=== PATIENT | male | born 1960 | race Hispanic/Latino ===

== ENCOUNTER 2020-08-14 13:47 | Emergency (ER) | payer OTHER, SELFPAY ==
[2020-08-14] VITALS (12 sets, daily range): BP systolic 129–170; BP diastolic 72–83; PULSE 77–89; RESP 16–21; TEMP 36.6; O2SAT 95–100
--- NOTE | 2020-08-14 13:59 | ECG_ITS ---
Measurements Intervals [place] Rate: 85 P: 46 [place]: 157 QRS: 48 QRSD: 86 T: 32 QT: 333 QTc: 398 Interpretive Statements SINUS RHYTHM NORMAL ECG Electronically Signed On 08-14-2020 14:06:23 CDT by Peter Luciano D.O.
--- NOTE | 2020-08-14 14:05 | ED.GENADULT ---
HPI - General Adult General Chief complaint: Recheck/Abnormal Lab/Rx Stated complaint: high blood pressure Time Seen by Provider: 08/14/20 13:51 Related Data Home Medications Medication Instructions Recorded Confirmed glipizide 10 mg PO DAILY 08/14/20 metformin 1,000 mg PO DAILY 08/14/20 pravastatin 40 mg PO DAILY 08/14/20 Allergies Allergy/AdvReac Type Severity Reaction Status Date / Time No Known Allergies Allergy Verified 08/14/20 13:58 Course Vital Signs Vital signs: Vital Signs Temperature 36.6 C 08/14/20 13:54 Pulse Rate 84 08/14/20 13:54 Respiratory Rate 20 08/14/20 13:54 Blood Pressure 170/82 H 08/14/20 13:54 Pulse Oximetry 98 08/14/20 13:54 Temperature 36.6 C 08/14/20 13:54 Pulse Rate 84 08/14/20 13:54 Respiratory Rate 20 08/14/20 13:54 Blood Pressure 170/82 H 08/14/20 13:54 Pulse Oximetry 98 08/14/20 13:54 Medical Decision Making Vital Signs Vital Signs: Vital Signs Temperature 36.6 C 08/14/20 13:54 Pulse Rate 84 08/14/20 13:54 Respiratory Rate 20 08/14/20 13:54 Blood Pressure 170/82 H 08/14/20 13:54 Pulse Oximetry 98 08/14/20 13:54 Temperature 36.6 C 08/14/20 13:54 Pulse Rate 84 08/14/20 13:54 Respiratory Rate 20 08/14/20 13:54 Blood Pressure 170/82 H 08/14/20 13:54 Pulse Oximetry 98 08/14/20 13:54 Discharge Plan Discharge Prescriptions: No Action pravastatin 40 mg Tablet 40 mg PO DAILY RF: 0 glipizide 10 mg Tablet 10 mg PO DAILY RF: 0 metformin 1,000 mg Tablet 1,000 mg PO DAILY RF: 0
[2020-08-14 14:22] LABS: Basophils Percent Auto 0.2 % (0.2-1.2); Eosinophils Percent Auto 0.5 % (0-4.4); Hematocrit 44.7 % (42.0-52.0); Hemoglobin 15.3 g/dL (14.0-18.0); Immature Granulocyte Absolute 0.03 K/mm3 (0.00-0.031); Immature Granulocyte Percent A 0.4 % (0-0.5); Lymphocytes Absolute Auto 2.04 K/mm3 (0.9-3.2); Lymphocytes Percent Auto 24.6 % (18.3-44.2); Mean Corpuscular HGB Conc 34.2 g/dl (32-36); Mean Corpuscular Volume 90.7 fl (80-100); Mean Platelet Volume 9.8 fl (7.4-10.4); Monocytes Absolute Auto 0.7 K/mm3 (0.1-0.6); Monocytes Percent Auto 8.7 % (2.6-8.5); Neutrophils Absolute Auto 5.5 K/mm3 (1.3-6.7); Neutrophils Percent Auto 65.6 % (45.5-73.1); Platelet Count Result 206 k/mm3 (150-375); Red Blood Count 4.93 M/mm3 (4.6-6.20); Red Cell Distribution Width 12.2 % (11.5-14.5); White Blood Count 8.3 K/mm3 (4.5-10.0)
--- NOTE | 2020-08-14 14:24 | ED.GENADULT ---
HPI - General Adult General Chief complaint: Recheck/Abnormal Lab/Rx Stated complaint: high blood pressure Time Seen by Provider: 08/14/20 13:51 Source: patient Mode of arrival: ambulatory History of Present Illness HPI narrative: Patient is a 60 y/o male complaining hypertension. He states that he had his BP checked earlier today and it was 222/88. He feels well other than some mild headache. He denies any chest pain, shortness of breath of leg swelling. He states that he was supposed to be taking Valsartan 40 mg daily, but has not been taking it recently because he felt fine. He states that he still has Valsartan at home. Related Data Home Medications Medication Instructions Recorded Confirmed glipizide 10 mg PO DAILY 08/14/20 metformin 1,000 mg PO DAILY 08/14/20 pravastatin 40 mg PO DAILY 08/14/20 Allergies Allergy/AdvReac Type Severity Reaction Status Date / Time No Known Allergies Allergy Verified 08/14/20 13:58 Review of Systems Constitutional: Constitutional: Denies chills, Denies fever(s), Reports headache(s) and Denies weakness Eyes: Eyes: Denies blurry vision ENT: Reports headache(s) and Denies neck pain Cardiovascular: Cardiovascular: Denies chest pain and Denies dyspnea Respiratory: Respiratory: Denies cough and Denies dyspnea Gastrointestinal: Gastrointestinal: Denies abdominal pain, Denies diarrhea, Denies nausea and Denies vomiting Genitourinary: Genitourinary: Denies hematuria and Denies dysuria Musculoskeletal: Musculoskeletal: Denies back pain and Denies neck pain Neurologic: Reports headache(s) and Denies weakness Exam Const: General: no acute distress and well developed Orientation/consciousness: oriented to person, oriented to place, oriented to time and patient oriented x3 HENMT: Head: normocephalic Ears: external ears normal General nose exam: Normal external nose present Eyes: General: appearance normal, both eyes and all related structures Conjunctivae: conjunctivae normal Neck: Neck: normal visual inspection and full ROM Chest: Chest palpation & inspection: normal inspection of the chest and no tenderness Resp: Effort & Inspection: normal respiratory effort Auscultation: clear to auscultation bilaterally Cardio: Rate: regular rate Rhythm: regular rhythm GI: GI Palp: No abdominal tenderness and Yes Soft to palpation Skin: General skin exam: normal color and turgor normal Neuro: General: oriented to person, oriented to place, oriented to time and patient oriented x3 Cranial nerves: Yes CN's II-XII intact bilaterally Cognition (Neuro): normal cognition Motor exam (neuro): 5/5 motor strength present throughout Sensory Exam: normal sensation Extrem: General: normal to inspection, full ROM and no pedal edema Psych: Appearance: grossly normal Mental Status: mental status grossly normal Affect: normal affect Course Reevaluation(s) Reevaluation #1: Rechecked. Patient feels well. Instructed patient to continue with Valsartan as already prescribed. Date: 08/14/20 Time: 15:05 Vital Signs Vital signs: Vital Signs Blood Pressure 170/82 H 08/14/20 13:53 Pulse Oximetry 100 08/14/20 13:53 Temperature 36.6 C 08/14/20 13:54 Pulse Rate 77 08/14/20 15:19 Respiratory Rate 18 08/14/20 15:19 Blood Pressure 137/83 08/14/20 15:19 Pulse Oximetry 99 08/14/20 15:19 Medical Decision Making Vital Signs Vital Signs: Vital Signs Blood Pressure 170/82 H 08/14/20 13:53 Pulse Oximetry 100 08/14/20 13:53 Temperature 36.6 C 08/14/20 13:54 Pulse Rate 77 08/14/20 15:19 Respiratory Rate 18 08/14/20 15:19 Blood Pressure 137/83 08/14/20 15:19 Pulse Oximetry 99 08/14/20 15:19 Lab Data Result diagrams: 08/14/20 14:11 08/14/20 14:11 Labs: Lab Results 08/14/20 08/14/20 Range/Units 14:11 14:11 WBC 8.3 (4.5-10.0) K/mm3 RBC 4.93 (4.6-6.20) M/mm3 Hgb 15.3 (14.0-18.0) g/dL Hct 44.
[2020-08-14 14:33] LABS: Anion Gap 5 mmol/L (8-16); Blood Urea Nitrogen 21 mg/dL (9-20); Calcium 9.3 mg/dL (8.4-10.2); Carbon Dioxide 26 mmol/L (22-30); Chloride 104 mmol/L (98-107); Estimated CRCL calculation 76 ml/min; Estimated Glomerular Filt Rate > 60; Glucose 153 mg/dL (75-110); Potassium 4.1 mmol/L (3.4-5.0); Sodium 135 mmol/L (137-145)
[2020-08-14] MEDS: VALSARTAN 40 MG TABLET PO (14:48)
== END 2020-08-14 15:16 | disposition home or self-care (01) ==
PROVIDERS: Emergency Provider Emergency Medicine
DX: I10 Essential (primary) hypertension (principal)
CPT/HCPCS: 36415; 80048; 85025; 93005; 99283; A9270

== ENCOUNTER 2023-04-19 17:45 | Emergency (ER) | payer OTHER, SELFPAY ==
--- NOTE | ~2023-04-19 | CT_ITS ---
EXAMINATION: CT brain wo con DATE: 04/19/2023 17:55 INDICATION: CVA. TECHNIQUE: Computed tomography (CT) of the head was performed without intravenous contrast. The dose- length product was 605.33 mGy-cm. Automated exposure control and iterative reconstruction technique w ere employed. COMPARISON: None FINDINGS: No acute intracranial hemorrhage, infarction, mass or mass effect. No ventriculomegaly or m idline shift. Basilar cisterns are patent. Normal boyd-white differentiation. Mild mucosal thickening of the ethmoid air cells. Mastoids are pneumatized. IMPRESSION: 1. No acute intracranial abnormality. As per stroke protocol, I called these results to emergency room, discussed with Dr. Darvin Richards MD at 04/19/2023 18:01 CDT. Reviewed, dictated and finalized at location A. IMPRESSION: 1. No acute intracranial abnormality. As per stroke protocol, I called these results to emergency room, discussed wit h Dr. Darvin Richards MD at 04/19/2023 18:01 CDT.
--- NOTE | ~2023-04-19 | XR_ITS ---
XR chest 1V portable 04/19/2023 18:14 Indication: Left-sided facial pain. Procedure: AP portable chest Comparison: No prior studies for comparison. Findings: Heart size normal. No focal air space disease, pulmonary edema, pleural effusion or suspect ed pneumothorax. Impression: 1: No acute cardiopulmonary disease. Reviewed, dictated and finalized at location A. Impression: 1: No acute cardiopulmonary disease.
--- NOTE | 2023-04-19 17:48 | ECG_ITS ---
Measurements Intervals [place] Rate: 77 P: 45 [place]: 174 QRS: 46 QRSD: 80 T: 24 QT: 349 QTc: 395 Interpretive Statements SINUS RHYTHM NORMAL ECG COMPARED TO ECG 08/14/2020 14:04:42 NO SIGNIFICANT CHANGES Electronically Signed On 04-20-2023 9:11:01 CDT by Florencio Salinas M.D.
[2023-04-19 17:59] VITALS: BP 167/78; PULSE 77; RESP 16; TEMP 36.7; O2SAT 100
--- NOTE | 2023-04-19 18:05 | ED.NEUROSD ---
HPI - Neuro Symptoms/Deficit General Chief Complaint: Suspected CVA Stated Complaint: left side numbness X2 hours Time Seen by Provider: 04/19/23 17:52 Source: patient and RN notes reviewed Mode of arrival: ambulatory Limitations: no limitations History of Present Illness HPI Narrative: THis is a 63 year old male with history of hypertension, DM who presents from home for evaluation of left side numbness. Patient states around 4 pm today, he was sitting on the couch and he felt his left face go numb. He also reports left hand and left leg were numb and tingling. He states he noticed that his left leg felt heavy as well. He denies history of CVA. He denies headache, blurred vision, difficulty speaking, chest pain or shortness of breath. Related Data Home Medications Medication Instructions Recorded Confirmed glipizide 10 mg tablet 10 mg PO DAILY 08/14/20 metformin 1,000 mg tablet 1,000 mg PO DAILY 08/14/20 pravastatin 40 mg tablet 40 mg PO DAILY 08/14/20 Allergies Allergy/AdvReac Type Severity Reaction Status Date / Time No Known Allergies Allergy Verified 04/19/23 17:46 Review of Systems Constitutional: Constitutional: Reports weakness Cardiovascular: Cardiovascular: Denies syncope, Denies rapid heart rate, Denies irregular heart rhythm, Denies leg edema and Denies dyspnea Respiratory: Respiratory: Denies chest congestion, Denies hemoptysis, Denies excessive phlegm production and Denies dyspnea Gastrointestinal: Gastrointestinal: Denies abdominal pain, Denies hematochezia, Denies diarrhea and Denies vomiting Genitourinary: Genitourinary: Denies hematuria, Denies dysuria, Denies penile discharge and Denies testicular pain Musculoskeletal: Musculoskeletal: Denies joint swelling, Denies loss of height and Denies muscle weakness Neurologic: Denies syncope, Reports focal weakness, Reports numbness and Reports weakness PMFSH Past Medical History Medical History (Updated 04/19/23 @ 18:54 by Kta Garcia MD) Diabetes mellitus Hyperlipidemia Hypertension Surgical History Surgical History (Updated 04/19/23 @ 18:54 by Kat Garcia MD) No pertinent past surgical history Social History Social History (Updated 04/19/23 @ 18:55 by Kat Garcia MD) Smoking status: Current every day smoker Exam Narrative: GENERAL: Well-appearing, well-nourished, and in no acute distress. HEAD: Normocephalic, atraumatic EYES: PERRLA and EOMI, conjunctiva clear without discharge THROAT:Mucous membranes moist, Oropharynx normal without erythema, exudate, peritonsillar swelling or fluctuance NECK: Supple, without lymphadenopathy or mass RESPIRATORY: No respiratory distress, Airway patent, Respirations non-labored, Clear to auscultation without rales, rhonchi or wheeze HEART: Regular rate and rhythm. No murmur heard. Normal peripheral pulses. ABDOMEN: Soft, nontender, nondistended, normal active bowel sounds. No masses. No rebound or guarding, No organomegaly. EXTREMITIES: No edema, normal strength with full range of motion. SKIN: Warm, dry, normal color without rash NEURO: Alert and oriented x3. . PSYCH: Normal mood and affect. Neuro: Motor exam (neuro): Other motor observations present (left lower extremity drift) Sensory Exam: Sensory deficit (Neuro) (decreased sensation to left arm, left face, left leg) Coordination: [id number] test normal and other (abnormal finger to nose on left) Extrem: General: normal to inspection Course Reevaluation(s) Reevaluation #1: PAtient and family reports they understand risk and agree to thrombolytics. They were offered to use stratus Date: 04/19/23 Time: 18:58 Consultations Consultation #1: I Spoke with Dr. Myers with [facility] who agrees with thrombolytics. PAtient will need to be transferred to ER after thrombolytics given, emergent transfer Date: 04/19/23 Time: 18:26 Vital Signs Vital signs: Vital Signs Temperature 98.1 F 04/19/23 1
[2023-04-19 18:16] VITALS: BP 144/66; PULSE 77; RESP 22; O2SAT 98
[2023-04-19 18:16] LABS: Basophils Percent Auto 0.4 % (0.2-1.2); Eosinophils Absolute Auto 0.2 K/mm3 (0-0.3); Eosinophils Percent Auto 2.5 % (0-4.4); Hematocrit 43.5 % (42.0-52.0); Hemoglobin 14.6 g/dL (14.0-18.0); Immature Granulocyte Absolute 0.01 K/mm3 (0.00-0.031); Immature Granulocyte Percent A 0.1 % (0-0.5); Lymphocytes Percent Auto 29.3 % (18.3-44.2); Mean Corpuscular HGB Conc 33.6 g/dl (32-36); Mean Corpuscular Volume 92.4 fl (80-100); Mean Platelet Volume 9.1 fl (7.4-10.4); Monocytes Absolute Auto 0.7 K/mm3 (0.1-0.6); Monocytes Percent Auto 9.5 % (2.6-8.5); Neutrophils Percent Auto 58.2 % (45.5-73.1); Platelet Count Result 248 k/mm3 (150-375); Red Blood Count 4.71 M/mm3 (4.6-6.20); Red Cell Distribution Width 12.7 % (11.5-14.5); White Blood Count 6.8 K/mm3 (4.5-10.0)
[2023-04-19 18:21] LABS: Glucose Point of Care 299 mg/dl (65-105)
[2023-04-19 18:28] LABS: INR 0.9; Prothrombin Time 12.5 Seconds (11.1-14.7)
[2023-04-19 18:31] VITALS: BP 154/101; PULSE 82; RESP 20; O2SAT 97
[2023-04-19 18:44] LABS: Troponin I < 0.012 ng/mL (0.000-0.034)
[2023-04-19 18:52] VITALS: BP 159/65; PULSE 78; RESP 22; O2SAT 99
[2023-04-19 19:01] VITALS: BP 159/80; PULSE 74; RESP 20
[2023-04-19 19:03] VITALS: BP 146/74; PULSE 74; RESP 18; O2SAT 97
[2023-04-19 19:37] LABS: Alanine Aminotransferase 20 U/L (6-50); Albumin Level 3.5 g/dL (3.5-5.1); Alkaline Phosphatase 43 U/L (38-126); Anion Gap 4 mmol/L (8-16); Aspartate Amino Transferase 23 U/L (17-59); Bilirubin,Total 0.6 mg/dL (0.2-1.3); Blood Urea Nitrogen 20 mg/dL (9-20); Calcium 8.9 mg/dL (8.4-10.2); Carbon Dioxide 31 mmol/L (22-30); Chloride 102 mmol/L (98-107); Estimated CRCL calculation 78 ml/min; Estimated Glomerular Filt Rate > 60; Glucose 296 mg/dL (65-110); Potassium 4.2 mmol/L (3.4-5.0); Sodium 137 mmol/L (137-145)
== END 2023-04-19 19:32 | disposition short-term general hospital (02) ==
PROVIDERS: Emergency Medicine; Emergency Provider General Practice
DX: I63.9 Cerebral infarction, unspecified (principal); R29.704 NIHSS score 4; I10 Essential (primary) hypertension; E11.9 Type 2 diabetes mellitus without complications; E78.5 Hyperlipidemia, unspecified
CPT/HCPCS: 36415; 37195; 70450; 71045; 80053; 82948; 84484; 85025; 85610; 85730; 93005; 99285; J2997

== ENCOUNTER 2023-05-04 14:44 | Emergency (ER) | payer OTHER, SELFPAY ==
--- NOTE | ~2023-05-04 | XR_ITS ---
EXAMINATION: XR hip LT 2V w AP pelvis DATE: 05/04/2023 16:53 INDICATION: One day of left hip pain TECHNIQUE: Anteroposterior view of the pelvis and anteroposterior and frog leg lateral views of the a ffected hip were obtained. COMPARISON: None. FINDINGS: Alignment is normal. No fracture or suspected osteonecrosis. 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 Bilateral hip joint spaces are relatively preserved. Mild lumbar spondylosis. Soft ti ssues are unremarkable. IMPRESSION: 1. Mild degenerative skeletal changes in the lumbar spine and bilateral sacroiliac joints. Reviewed, dictated and finalized at location A. IMPRESSION: 1. Mild degenerative skeletal changes in the lumbar spine and bilateral sacroil iac joints.
[2023-05-04 14:46] VITALS: BP 129/82; PULSE 100; RESP 18; TEMP 36.5; O2SAT 100
--- NOTE | 2023-05-04 16:42 | ED.EXTPRO ---
HPI - Extremity Problem General Chief complaint: Extremity Problem,Nontraumatic Stated complaint: pain ro right hip, down to knee Time Seen by Provider: 05/04/23 15:47 History of Present Illness HPI Narrative: Patient is a 63-year-old male presenting with left hip and lower back pain. Patient states that he was recently discharged from a rehab facility after having a stroke a couple of months ago. States that for the last day and a half he has had left hip pain that shoots down the back of his leg. States he also has pain in his left buttocks. He denies recent falls or traumas. No numbness or weakness. States that laying on his left side seems to improve the pain. He denies saddle anesthesia, fevers, bladder or bowel incontinence. He denies further complaints. States that he has taken Tylenol with moderate relief. Related Data Home Medications Medication Instructions Recorded Confirmed glipizide 10 mg tablet 10 mg PO DAILY 08/14/20 metformin 1,000 mg tablet 1,000 mg PO DAILY 08/14/20 pravastatin 40 mg tablet 40 mg PO DAILY 08/14/20 Allergies Allergy/AdvReac Type Severity Reaction Status Date / Time No Known Allergies Allergy Verified 05/04/23 15:16 Review of Systems Review of Systems: All systems reviewed & are unremarkable except as noted in HPI and below PMFSH Past Medical History Medical History Diabetes mellitus Hyperlipidemia Hypertension Surgical History Surgical History No pertinent past surgical history Social History Social History Smoking status: Current every day smoker Exam Narrative: GENERAL: Well-appearing, well-nourished, and in no acute distress. HEAD: Normocephalic, atraumatic. EYES: PERRLA and EOMI. ENT: Nares clear, no rhinorrhea or epistaxis. NECK: Supple. CHEST: No respiratory distress. HEART: Regular rate and rhythm. Normal peripheral pulses. ABDOMEN: Soft, nontender, nondistended EXTREMITIES: Normal range of motion. No edema. ROM intact though certain movements of left hip exacerbate the pain; DP/PT pulses 2+ BACK: +paraspinal tenderness bilaterally lumbar spine region with tenderness down left buttock and left hip. No skin changes, no deformities, no midline tenderness SKIN: Warm, dry, no rash. NEURO: No focal deficits. Alert and oriented x3. PSYCH: Normal mood and affect. Course Vital Signs Vital signs: Vital Signs Temperature 97.7 F 05/04/23 14:46 Pulse Rate 100 05/04/23 14:46 Respiratory Rate 18 05/04/23 14:46 Blood Pressure 129/82 05/04/23 14:46 Pulse Oximetry 100 05/04/23 14:46 Oxygen Delivery Room Air 05/04/23 14:46 Temperature 97.7 F 05/04/23 14:46 Pulse Rate 100 05/04/23 14:46 Respiratory Rate 18 05/04/23 14:46 Blood Pressure 129/82 05/04/23 14:46 Pulse Oximetry 100 05/04/23 14:46 Oxygen Delivery Room Air 05/04/23 14:46 MDM - Extremity (Nontraumatic) MDM Narrative Medical decision making narrative: Patient is a 63-year-old male presenting with lower back and left hip pain. Vitals within normal limits. Exam remarkable for the above. Suspect lumbar radiculopathy given the paraspinal tenderness extending down his left buttocks and the description of the pain is a shooting pain down his leg. He denies any red flag symptoms. He denies any recent traumas. He is neurovascularly intact. I do not suspect a vascular pathology. We will obtain a hip x-ray and treat with ibuprofen and steroids. X-ray shows degenerative changes in the lumbar spine and bilateral sacroiliac joints. No acute osseous abnormalities. On reevaluation, the patient states that his pain has improved. Discussed the findings on x-ray. Recommended ibuprofen and Tylenol. We will do a short burst of prednisone. Advised that he follow-up closely with his PCP to ensure
[2023-05-04] MEDS: IBUPROFEN 400 MG TABLET 800 MG PO (16:54)
[2023-05-04] MEDS: predniSONE 20 MG TABLET 40 MG PO (16:54)
== END 2023-05-04 18:27 | disposition home or self-care (01) ==
PROVIDERS: Emergency Provider Emergency Medicine; PCP Registered Nurse
DX: M54.16 Radiculopathy, lumbar region (principal); M25.552 Pain in left hip; E11.9 Type 2 diabetes mellitus without complications; Z79.84 Long term (current) use of oral hypoglycemic drugs; I10 Essential (primary) hypertension; E78.5 Hyperlipidemia, unspecified
CPT/HCPCS: 73502; 99283; A9270; J7512

== ENCOUNTER 2023-07-27 15:51 | Emergency (ER) | payer OTHER, SELFPAY ==
[2023-07-27 15:58] VITALS: BP 137/74; PULSE 99; RESP 20; TEMP 37.1; O2SAT 99
--- NOTE | 2023-07-27 16:15 | ED.DIZZY ---
HPI - Dizziness General Chief Complaint: Dizziness Stated Complaint: headache,dizzy, body not feeling right Time Seen by Provider: 07/27/23 16:15 Source: patient and RN notes reviewed Mode of arrival: ambulatory Limitations: no limitations History of Present Illness HPI Narrative: 63 y/o male with hx DM and CVA (04/2023) presented for c/o dizziness worsening for 4 days. States he feels like he could pass out, endorses nausea and blurred vision at times. Feels better only when laying down, worse when walking. Denies room spinning sensation. Denies cp, palpitations, sob, wheezing, vomiting or fever. Reports BS have been 70-140s. Not drinking much water. Quit smoking after CVA. Reports weight loss since CVA. Scheduled with [facility] tomorrow. Related Data Home Medications Medication Instructions Recorded Confirmed metformin 1,000 mg tablet 1,000 mg PO DAILY 08/14/20 07/27/23 pravastatin 40 mg tablet 40 mg PO DAILY 08/14/20 07/27/23 alendronate 70 mg tablet 70 mg PO DAILY 07/27/23 07/27/23 aspirin 81 mg tablet,delayed 81 mg PO DAILY 07/27/23 07/27/23 release dapagliflozin propanediol 5 mg 5 mg PO DIRECTED 07/27/23 07/27/23 tablet (Farxiga) valsartan 40 mg tablet 40 mg PO DAILY 07/27/23 07/27/23 Allergies Allergy/AdvReac Type Severity Reaction Status Date / Time No Known Allergies Allergy Verified 07/27/23 16:06 Review of Systems Review of Systems: CONSTITUTIONAL: Denies body aches, fever, chills, or sweats. EYES: Reports occasional blurred vision. Denies photophobia, redness, or discharge. ENT: Denies rhinorrhea, congestion, sore throat, or otalgia. CARDIOVASCULAR: Denies chest pain, palpitations, or edema. RESPIRATORY: Denies cough or dyspnea. GASTROINTESTINAL: Denies abdominal pain, vomiting, or diarrhea. GENITOURINARY: Denies dysuria or hematuria. SKIN: Denies rash, itching, or wounds. MUSCULOSKELETAL: Denies back pain, joint pain, or myalgia. NEUROLOGIC: Endorses dizziness, denies headache, numbness, tingling, or weakness All systems reviewed & are unremarkable except as noted in HPI and below PMFSH Past Medical History Medical History (Updated 07/27/23 @ 17:01 by Machelle Mann APRN) CVA (cerebral vascular accident) Diabetes mellitus Hyperlipidemia Hypertension Surgical History Surgical History No pertinent past surgical history Social History Social History Smoking status: Current every day smoker Comments At time of signature, I have reviewed and agree with nursing past medical, surgical, social and family history unless otherwise noted. Please see nursing chart for further information. There is no relevant family history pertinent to the presenting complaint Exam Narrative: GENERAL: Well-appearing, well-nourished HEAD: Normocephalic, atraumatic. EYES: PERRLA, EOMI. ENT: Mucous membranes pink and moist. No rhinorrhea. TMs normal bilaterally. NECK: Normal AROM. Supple. No lymphadenopathy. CHEST: No respiratory distress. Clear to auscultation. HEART: Regular rate and rhythm. No murmur appreciated. Normal peripheral pulses. ABDOMEN: Soft, nontender, nondistended, normal active bowel sounds. EXTREMITIES: Normal range of motion. No edema. SKIN: Warm, dry, no rash. Capillary refill normal. Normal skin turgor. NEURO:No focal deficits. Alert and oriented x3. Finger to nose intact bilaterally. EOMs intact without nystagmus. No facial droop/asymmetry noted bilaterally. Grimace intact. Intact sensation in face. Hearing intact bilaterally. Shoulder shrug intact. Strength 5/5 bilateral upper extremities. Ambulatory exam with a normal based, steady gait. PSYCH: Normal affect. Course Course Emergency Course: Patient is aware of diagnosis, understands and agrees to treatment plan. Anticipatory guidance given. Patient agrees to follow-up as directed and is aware of reasons
[2023-07-27 16:22] LABS: Glucose Point of Care 213 mg/dl (65-105)
--- NOTE | 2023-07-27 16:28 | ECG_ITS ---
Measurements Intervals [place] Rate: 69 P: 36 [place]: 177 QRS: 42 QRSD: 84 T: 33 QT: 353 QTc: 381 Interpretive Statements SINUS RHYTHM NORMAL ECG COMPARED TO ECG 04/19/2023 17:59:59 NO SIGNIFICANT CHANGES Electronically Signed On 07-27-2023 20:38:15 CDT by Peter Luciano D.O.
== END 2023-07-27 17:00 | disposition left against medical advice (07) ==
PROVIDERS: Emergency Provider Nurse Practitioner Family; PCP Registered Nurse
DX: R42 Dizziness and giddiness (principal); Z79.84 Long term (current) use of oral hypoglycemic drugs; E11.9 Type 2 diabetes mellitus without complications; E78.5 Hyperlipidemia, unspecified; I10 Essential (primary) hypertension; Z86.73 Personal history of transient ischemic attack (TIA), and cerebral infarction without residual deficits; Z79.82 Long term (current) use of aspirin; Z87.891 Personal history of nicotine dependence
CPT/HCPCS: 82948; 93005; 99213; G0463

== ENCOUNTER 2023-07-27 17:28 | Emergency (ER) | payer OTHER, SELFPAY ==
[2023-07-27] VITALS (18 sets, daily range): BP systolic 128–162; BP diastolic 69–86; PULSE 65–80; RESP 13–22; TEMP 36.3; O2SAT 99–100
--- NOTE | ~2023-07-27 | CT_ITS ---
EXAMINATION: CT brain wo con DATE: 07/27/2023 19:14 INDICATION: dizziness . TECHNIQUE: Computed tomography (CT) of the head was performed without intravenous contrast. The mA wa s adjusted according to patient size. Iterative reconstruction technique was employed. The dose-lengt h product was 529.67 mGy-cm. COMPARISON: 04/19/2023. FINDINGS: No acute intracranial hemorrhage or extra-axial fluid collection. No hydrocephalus, mass, or herniation. No acute ischemic infarct. Unremarkable dural venous sinus attenuation. No acute osseous abnormality. The aerated spaces are clear. Mild chronic white matter change. 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 Mild bilateral basal ganglia calc ification. IMPRESSION: No acute intracranial process. Reviewed, dictated and finalized at location K.
--- NOTE | ~2023-07-27 | XR_ITS ---
EXAMINATION: XR chest 2V Exam Date/Time: 07/27/2023 17:55 CDT HISTORY: weakness Comparison: 04/19/2023. RESULT: Lines, tubes, and devices: None. Lungs and pleura: Clear. Cardiomediastinal silhouette: Stable. Other: No acute osseous or upper abdominal finding. IMPRESSION: No acute cardiopulmonary process. Reviewed, dictated and finalized at location K.
--- NOTE | 2023-07-27 17:49 | ECG_ITS ---
Measurements Intervals [place] Rate: 76 P: 18 [place]: 160 QRS: 44 QRSD: 78 T: 24 QT: 348 QTc: 393 Interpretive Statements SINUS RHYTHM NORMAL ECG COMPARED TO ECG 04/19/2023 17:59:59 NO SIGNIFICANT CHANGES Electronically Signed On 07-29-2023 6:59:42 CDT by Peter Luciano D.O.
--- NOTE | 2023-07-27 18:27 | ED.GENADULT ---
HPI - General Adult General Chief complaint: Unspecified Stated complaint: dizzy/shaking Time Seen by Provider: 07/27/23 18:04 History of Present Illness HPI narrative: Patient is a 63-year-old male with history of hypertension here with multiple symptoms including fatigue, loss of appetite, lightheadedness. Patient states that over the last 4-5 days he has been feeling progressively worsening symptoms. He notes that he gets lightheaded when he tries to move around and feels as though he may pass out. He additionally has some decreased appetite. He notes generalized fatigue. He denies any cough, fever or chills. Denies any sick contacts. Denies any shortness of breath or chest pain. He does note some intermittent headaches which seem to be worse when he clenches his teeth. No prior cardiac history. Related Data Home Medications Medication Instructions Recorded Confirmed metformin 1,000 mg tablet 1,000 mg PO DAILY 08/14/20 07/27/23 pravastatin 40 mg tablet 40 mg PO DAILY 08/14/20 07/27/23 alendronate 70 mg tablet 70 mg PO DAILY 07/27/23 07/27/23 aspirin 81 mg tablet,delayed 81 mg PO DAILY 07/27/23 07/27/23 release dapagliflozin propanediol 5 mg 5 mg PO DIRECTED 07/27/23 07/27/23 tablet (Farxiga) valsartan 40 mg tablet 40 mg PO DAILY 07/27/23 07/27/23 Allergies Allergy/AdvReac Type Severity Reaction Status Date / Time No Known Allergies Allergy Verified 07/27/23 16:06 [facility] Past Medical History Medical History (Updated 07/27/23 @ 20:19 by Nury Garcia MD) CVA (cerebral vascular accident) Diabetes mellitus Hyperlipidemia Hypertension Surgical History Surgical History No pertinent past surgical history Social History Social History Smoking status: Current every day smoker Course Course Emergency Course: Chart review performed. Patient here with generalized weakness off and on since last week. Last ED visit on 05/04/23 for hip and knee pain. Triage vitals grossly normal aside from HTN. Patient seen evaluated, no acute distress. He has a lot of vague possibly viral symptoms along with lightheadedness. Extremely broad list of differentials at this time including something cardiogenic, neurogenic, infectious. As a result will do a broad workup and provide patient with IV fluids and Tylenol. Lab work and imaging reviewed. CBC within normal limits, electrolytes grossly normal, normal renal function, initial troponin negative, CRP negative, lipase normal, CPK normal. UA negative for UTI. Patient negative for influenza, RSV, COVID-19. CT head and chest x-ray negative. Patient feeling much better after IVF. Will ambulate around and see how he does in the department. Ambulate patient myself around the department. He notes that he felt great throughout the walk around the department with no symptoms. He notes that he has had some decreased PO intake recently because about 3 months ago he lost the sensation in the left side of his face and food no longer tastes as good as it used to. Advise he should increase his p.o. intake and fluid intake and call his primary care doctor tomorrow to schedule a follow-up appointment this week. He is advised he should return to the emergency department should any of his symptoms worsen. The results of pertinent diagnostic studies and exam findings were discussed. The patient?s provisional diagnosis and plan of care were discussed with the patient and present family. The patient and/or present family expressed understanding of the diagnosis and plan. The nurse was instructed to provide written instructions and appropriate follow-up information. The patient understands their need and responsibility to obtain additional follow-up as instructed. The risks of medications administered and prescribed were discussed with the patient and family present. Vital Signs
[2023-07-27 18:31] LABS: Basophils Percent Auto 0.2 % (0.2-1.2); Eosinophils Percent Auto 0.5 % (0-4.4); Hematocrit 42.8 % (42.0-52.0); Hemoglobin 14.2 g/dL (14.0-18.0); Immature Granulocyte Absolute 0.03 K/mm3 (0.00-0.031); Immature Granulocyte Percent A 0.4 % (0-0.5); Lymphocytes Absolute Auto 1.67 K/mm3 (0.9-3.2); Mean Corpuscular HGB Conc 33.2 g/dl (32-36); Mean Corpuscular Hemoglobin 31.3 pg (26-34); Mean Corpuscular Volume 94.5 fl (80-100); Mean Platelet Volume 8.9 fl (7.4-10.4); Monocytes Absolute Auto 0.8 K/mm3 (0.1-0.6); Monocytes Percent Auto 9.6 % (2.6-8.5); Neutrophils Absolute Auto 5.8 K/mm3 (1.3-6.7); Neutrophils Percent Auto 69.3 % (45.5-73.1); Platelet Count Result 241 k/mm3 (150-375); Red Blood Count 4.53 M/mm3 (4.6-6.20); Red Cell Distribution Width 12.8 % (11.5-14.5); White Blood Count 8.4 K/mm3 (4.5-10.0)
[2023-07-27 18:42] LABS: Appearance Urine Clear (Clear); Bilirubin Urine Negative (Negative); Blood Urine Negative (Negative); Color Urine Yellow (Yellow); Glucose Urine UA 3+ mg/dL (Negative); Ketones Urine Negative (Negative); Leukocyte Esterase Ur Negative LEU/UL (Negative); Nitrate Urine Negative (Negative); Protein Urine Negative (Negative); Urobilinogen Urine 0.2 mg/dL (<2.0); pH Urine 5.5 (5.0-9.0)
[2023-07-27 18:43] LABS: Specific Grav Ur 1.036 (1.001-1.035)
[2023-07-27 18:44] LABS: Alanine Aminotransferase 19 U/L (6-50); Albumin Level 3.5 g/dL (3.5-5.1); Alkaline Phosphatase 33 U/L (38-126); Anion Gap 5 mmol/L (8-16); Aspartate Amino Transferase 23 U/L (17-59); Bilirubin,Total 0.6 mg/dL (0.2-1.3); Blood Urea Nitrogen 26 mg/dL (9-20); Calcium 8.9 mg/dL (8.4-10.2); Carbon Dioxide 26 mmol/L (22-30); Chloride 104 mmol/L (98-107); Estimated CRCL calculation 84 ml/min; Estimated Glomerular Filt Rate > 60; Glucose 121 mg/dL (65-110); Potassium 4.3 mmol/L (3.4-5.0); Sodium 135 mmol/L (137-145)
[2023-07-27 18:47] LABS: Add Urine Microscopic? NO
[2023-07-27] MEDS: LACTATED RINGERS 1,000 ML 999 ML IV CONT (18:59)
[2023-07-27 19:30] LABS: CRP < 0.5 mg/dL (<1.0); Creatine Kinase 24 U/L (55-170); Lipase 110 U/L (23-300); Magnesium 2.2 mg/dL (1.6-2.3)
--- NOTE | 2023-07-27 19:33 | PC.NURSE ---
Report received from PETER Corona. Assumed care of patient at this time.
[2023-07-27 19:37] LABS: Troponin I < 0.012 ng/mL (0.000-0.034)
[2023-07-27 19:40] LABS: Influenza A QL RT-PCR Negative (Negative); Influenza B QL RT-PCR Negative (Negative); RSV RNA, RT-PCR Negative (Negative); SARS-CoV-2 RNA PCR Negative (Negative)
[2023-07-27] MEDS: ACETAMINOPHEN 500 MG TABLET 1000 MG PO (19:41)
== END 2023-07-27 20:38 | disposition home or self-care (01) ==
PROVIDERS: Emergency Provider Student in an Organized Health Care Education/Training Program; PCP Registered Nurse
DX: J11.1 Influenza due to unidentified influenza virus with other respiratory manifestations (principal); E86.0 Dehydration; R42 Dizziness and giddiness; Z20.822 Contact with and (suspected) exposure to COVID-19; I10 Essential (primary) hypertension; E11.9 Type 2 diabetes mellitus without complications; E78.5 Hyperlipidemia, unspecified; F17.200 Nicotine dependence, unspecified, uncomplicated; Z86.73 Personal history of transient ischemic attack (TIA), and cerebral infarction without residual deficits; Z79.82 Long term (current) use of aspirin; Z79.84 Long term (current) use of oral hypoglycemic drugs
CPT/HCPCS: 36415; 70450; 71046; 80053; 81003; 82550; 82948; 83690; 83735; 84484; 85025; 86140; 87637; 93005; 96360; 99284; A9270; J7120